=== PATIENT | male | born 1950 | race Caucasian/White ===

== ENCOUNTER → 2021-02-24 | Outpatient (CLI) | payer OTHER ==
[~2021-02-24] MED LIST: BENAZEPRIL HCL10 MG PO; CLONAZEPAM 1 MG1 M1 PO; EFFEXOR 5050 MG/1 T1 PO; HYDROCHLOROTHIA25 M2 PO; IBUPROFEN 800800 M1 PO; LAMICTAL100 MG PO; LEVOTHYROXIN0.075 MG PO; LEXAPRO 10 MG T10 M1 PO; LIPITOR 20 MG T20 M1 PO; LOTREL 5-20 MG1 EACH PO; NORCO 5-325 TA1 EACH PO; NORVASC5 MG PO; SENOKOT-S1 TA1 PO; TOPAMAX 25 MG T25 M1 PO; VENLAFAXIN37.5 MG/1
== END ==
LOC: CAT 08:47
PROVIDERS: ATTEND Internal Medicine
DX: Z13.6 Encounter for screening for cardiovascular disorders (principal); I25.10 Atherosclerotic heart disease of native coronary artery without angina pectoris